=== PATIENT | male | born 1955 | race Caucasian/White ===

== ENCOUNTER 2023-02-28 18:19 | Inpatient (IN) | payer MEDICARE, OTHER ==
[~2023-02-28 18:19] MED LIST: Iopamidol 300 61% 100 ML VIAL FS ONE
[2023-02-28] MEDS ORDERED: Aspirin Chewable 81 MG TAB ONE (18:32)
[2023-02-28] MEDS ORDERED: Nitroglycerin 0.4 MG TAB 1 EACH ONE ×2 (18:39→18:43)
[2023-02-28 18:43] LABS: #Basophils 0.1 10x3/uL (0.0-0.2); #Eosinphils 0.2 10x3/uL (0.0-0.5); #Monocytes 0.7 10x3/uL (0.0-1.1); %Basophils 0.6 % (0.0-2.0); %Eosinophils 2.3 % (0.0-6.0); %Lymphocytes 17.7 % (18.0-47.0); %Neutrophils 71.9 % (40.0-75.0); Hemoglobin 13.6 g/dL (13.5-17.5); Mean Corpuscular HGB CONC 35.6 g/dL (32.0-36.0); Mean Corpuscular Hemoglobin 33.3 pg (27.0-33.0); Mean Corpuscular Volume 93.4 fl (81.2-95.1); Mean Platelet Volume 9.7 fl (7.4-10.4); Platelet Count 248 10x3/uL (150-450); RBC Distribution Width 12.4 % (11.5-14.5); Red Blood Cell (RBC) Count 4.09 10x6/uL (4.32-5.72); White Blood Cell (WBC) Count 9.8 10x3/uL (3.5-10.5)
[2023-02-28] MEDS ORDERED: Adenosine 6 MG/2 ML VIAL ONE (18:57)
[2023-02-28] MEDS ORDERED: Sodium Chloride 0.9% 1,000 ML ONE (18:57)
[2023-02-28] MEDS ORDERED: Heparin 10,000 UNITS/ 10 ML VIAL ONE (18:57)
[2023-02-28] MEDS ORDERED: Nitroglycerin 50 MG/250 ML BOT 250 ML ONE (18:57)
[2023-02-28] MEDS ORDERED: Lidocaine 1% (PF) 30 ML VIAL ONE (18:57)
[2023-02-28] MEDS ORDERED: Midazolam HCl 2 mg/2 ml Vial ONE (19:21)
[2023-02-28] MEDS ORDERED: Fentanyl 100 MCG/2 ML VIAL ONE (19:23)
[2023-02-28 19:26] LABS: CKMB 1.4 ng/mL (0-6.6)
[2023-02-28] MEDS ORDERED: Atropine Sulfate 0.4 mg/1 ml Vial ONE (19:33)
[2023-02-28 19:41] LABS: ALT (SGPT) 10 U/L (8-55); AST (SGOT) 18 U/L (5-34); Albumin 4.2 g/dL (3.4-4.8); Alkaline Phosphatase 80 U/L (40-110); Anion Gap 19 mmol/L (10-20); BUN (Urea Nitrogen) 17 mg/dL (8.4-25.7); Bilirubin, Total 0.7 mg/dL (0.2-1.2); CK (CPK) 43 U/L (30-200); Calc. Creatinine Clearance 0 mL/min (70-130); Calcium 8.9 mg/dL (7.8-10.44); Carbon Dioxide 19 mmol/L (23-31); Chloride 103 mmol/L (98-107); Estimated GFR 92; Globulin 2.3 g/dL (2.4-3.5); Glucose 118 mg/dL (80-115); Lipase 22 U/L (8-78); Magnesium 1.8 mg/dL (1.6-2.6); Potassium 4.7 mmol/L (3.5-5.1); Protein, Total 6.5 g/dL (5.8-8.1); Sodium 136 mmol/L (136-145)
[2023-02-28] MEDS ORDERED: Acetaminophen/Codeine 30-300mg Tablet PO PRN (20:43)
[2023-02-28] MEDS ORDERED: Morphine 2 MG/ML VIAL SLOW IVP PRN (20:43)
[2023-02-28] MEDS ORDERED: Nitroglycerin 0.4 MG TAB (25 Tab Bottle) SL PRN (20:43)
[2023-02-28] MEDS ORDERED: Mag-Al 1200 mg/1200 mg/30 ML UDCUP PO PRN (20:43)
[2023-02-28] MEDS ORDERED: Milk Of Magnesia 30 ML UDCUP PO PRN (20:43)
[2023-02-28 20:55] VITALS: BMI 25.4
[2023-02-28] MEDS ORDERED: Atorvastatin Calcium 20 MG TAB PO SCH (21:00)
[2023-02-28] MEDS: Sodium Chloride 0.9% 1,000 ML IV SCH (21:34)
[2023-03-01 03:33] LABS: #Eosinphils 0.2 10x3/uL (0.0-0.5); #Monocytes 0.5 10x3/uL (0.0-1.1); #Neutrophils 2.7 10x3/uL (1.5-8.4); %Basophils 0.7 % (0.0-2.0); %Eosinophils 3.6 % (0.0-6.0); %Lymphocytes 37.2 % (18.0-47.0); %Monocytes 8.8 % (0.0-10.0); %Neutrophils 49.2 % (40.0-75.0); Hemoglobin 12.6 g/dL (13.5-17.5); Mean Corpuscular HGB CONC 34.8 g/dL (32.0-36.0); Mean Corpuscular Volume 94.8 fl (81.2-95.1); Mean Platelet Volume 9.6 fl (7.4-10.4); Platelet Count 193 10x3/uL (150-450); RBC Distribution Width 12.4 % (11.5-14.5); Red Blood Cell (RBC) Count 3.82 10x6/uL (4.32-5.72); White Blood Cell (WBC) Count 5.6 10x3/uL (3.5-10.5)
[2023-03-01 03:53] LABS: Troponin I 4.085 ng/mL (< 0.028)
[2023-03-01 03:57] LABS: ALT (SGPT) 11 U/L (8-55); AST (SGOT) 24 U/L (5-34); Albumin 3.5 g/dL (3.4-4.8); Alkaline Phosphatase 61 U/L (40-110); Anion Gap 14 mmol/L (10-20); BUN (Urea Nitrogen) 14 mg/dL (8.4-25.7); Bilirubin, Total 0.8 mg/dL (0.2-1.2); Calc. Creatinine Clearance 120 mL/min (70-130); Calcium 8.5 mg/dL (7.8-10.44); Carbon Dioxide 23 mmol/L (23-31); Chloride 107 mmol/L (98-107); Estimated GFR 100; Globulin 2.1 g/dL (2.4-3.5); Glucose 88 mg/dL (80-115); Potassium 3.9 mmol/L (3.5-5.1); Protein, Total 5.6 g/dL (5.8-8.1); Sodium 140 mmol/L (136-145)
[2023-03-01] MEDS: Sodium Chloride 0.9% 1,000 ML IV SCH (06:02)
[2023-03-01] MEDS ORDERED: Carvedilol 3.125 MG TAB PO SCH (08:00)
[2023-03-01] MEDS ORDERED: Aspirin Chewable 81 MG TAB PO SCH (09:00)
[2023-03-01] MEDS ORDERED: Clopidogrel Bisulfate 75 MG TAB PO SCH (09:00)
[2023-03-01] MEDS ORDERED: Lisinopril 2.5 MG TAB PO SCH (09:00)
[2023-03-01 11:17] VITALS: BP 137/70; TEMP 98.4
== END 2023-03-01 11:38 | disposition left against medical advice (07) | DRG 246 ==
LOC: CSHERS 18:19 → CSHICU 20:53
PROVIDERS: ADMIT Specialist; ATTEND Specialist
PROC: 027034Z Dilation of Coronary Artery, One Artery with Drug-eluting Intraluminal Device, Percutaneous Approach (ICD-10-PCS; principal; 2023-02-28)
PROC: B241ZZ3 Ultrasonography of Multiple Coronary Arteries, Intravascular (ICD-10-PCS; 2023-02-28)
PROC: 4A023N7 Measurement of Cardiac Sampling and Pressure, Left Heart, Percutaneous Approach (ICD-10-PCS; 2023-02-28)
PROC: B2111ZZ Fluoroscopy of Multiple Coronary Arteries using Low Osmolar Contrast (ICD-10-PCS; 2023-02-28)
PROC: B2151ZZ Fluoroscopy of Left Heart using Low Osmolar Contrast (ICD-10-PCS; 2023-02-28)
DX: I21.09 ST elevation (STEMI) myocardial infarction involving other coronary artery of anterior wall (principal); I50.23 Acute on chronic systolic (congestive) heart failure; T82.855A Stenosis of coronary artery stent, initial encounter; I25.10 Atherosclerotic heart disease of native coronary artery without angina pectoris; Z95.5 Presence of coronary angioplasty implant and graft; I25.5 Ischemic cardiomyopathy; Z95.810 Presence of automatic (implantable) cardiac defibrillator; I25.2 Old myocardial infarction; Y83.8 Other surgical procedures as the cause of abnormal reaction of the patient, or of later complication, without mention of misadventure at the time of the procedure
CPT/HCPCS: 36415; 71045; 80053; 82550; 82553; 83690; 83735; 83880; 84484; 85025; 92941; 92978; 92979; 93005; 93010; 93458; 99152; 99153; C1725; C1753; C1760; C1769; C1874; C1887; C9606; J0153; J0461; J1644; J2001; J2250; J3010; J7050

== ENCOUNTER 2024-10-04 09:33 | Outpatient (CLI) | payer MEDICARE, OTHER | END 2024-10-04 09:34 | disposition home or self-care (01) | LOC: CSHCT 09:33 | PROVIDERS: ATTEND Student in an Organized Health Care Education/Training Program | DX: Z12.2 Encounter for screening for malignant neoplasm of respiratory organs (principal); F17.210 Nicotine dependence, cigarettes, uncomplicated; Z13.6 Encounter for screening for cardiovascular disorders | CPT/HCPCS: 71271; 76706 ==